=== PATIENT | male | born 1990 | race Caucasian/White ===

== ENCOUNTER 2016-10-27 09:58 | Emergency (ER) | payer OTHER ==
[~2016-10-27] VITALS: Ht 177.8 cm; Wt 77.3 kg
[2016-10-27] MEDS ORDERED: MULTCAP11 PO (10:10)
[2016-10-27 11:31] VITALS: BP 138/77
== END 2016-10-27 11:34 | disposition home or self-care (01) ==
LOC: M ED 09:58
DX: J06.9 Acute upper respiratory infection, unspecified (principal)

== ENCOUNTER 2017-04-17 09:34 | Emergency (ER) | payer OTHER ==
[2017-04-17] MEDS: ADACEL/BOOSTRIX VACCINE (DIPHTH/PERTUSS/ACELL/TETANUS)0.5ML SYR (90715) IM (10:00)
[2017-04-17] MEDS: AUGMENTIN 875 MG TAB PO (10:12)
== END 2017-04-17 11:45 | disposition home or self-care (01) ==
LOC: M ED 09:34
DX: S61.552A Open bite of left wrist, initial encounter (principal); S00.81XA Abrasion of other part of head, initial encounter; W54.0XXA Bitten by dog, initial encounter; Y92.89 Other specified places as the place of occurrence of the external cause
CPT/HCPCS: 90715